=== PATIENT | female | born 1975 | race Caucasian/White ===

== ENCOUNTER 2018-03-24 12:02 | Inpatient (IN) | payer OTHER ==
[~2018-03-24] VITALS: Ht 157.5 cm; Wt 90.7 kg
[~2018-03-24 12:02] MED LIST: CIPRO750 MG PO; CLONAZEPAM1 MG PO; DEMEROL50 MG PO; DOCUSATE SODIU100 MG PO; METHYLPRED4 MG/DOSE- PO; NEURONTIN PO
[2018-03-31] MEDS ORDERED: SYNTHROID50 MCG PO (09:15)
[2018-03-31] MEDS ORDERED: PROTONIX40 MG PO (09:15)
[2018-03-31] MEDS ORDERED: ZANTAC300 MG PO (09:15)
[2018-03-31] MEDS ORDERED: ZOCOR40 MG PO (09:16)
[2018-03-31] MEDS ORDERED: ANAPROX PO (09:16)
[2018-03-31] MEDS ORDERED: VITAMIN D350000 UNIT PO (09:17)
[2018-03-31] MEDS ORDERED: B-121000 MC1 PO (09:17)
[2018-03-31] MEDS ORDERED: CLONAZEPAM1 MG PO (09:18)
[2018-04-05] MEDS ORDERED: GABAPENTIN800 MG PO (09:20)
[2018-04-05] MEDS ORDERED: DOCUSATE SODIU100 MG PO (09:20)
[2018-04-05] MEDS ORDERED: AMOX-CLAV 875-1 EACH PO (09:22)
[2018-04-05] MEDS ORDERED: DEMEROL 50 M50 MG/ML IJ (09:23)
[2018-04-05] MEDS ORDERED: CLONAZEPAM1 MG PO (09:23)
[2018-04-05] MEDS ORDERED: PHENERGAN50 MG/1 ML IJ (15:38)
== END 2018-04-05 16:00 | disposition home or self-care (01) | DRG 460 ==
LOC: O/R 04-04 04:40 → PED 04-04 04:40 → O/R 04-04 07:15 → PED 04-04 18:51
PROVIDERS: Orthopaedic Surgery Orthopaedic Surgery of the Spine
PROC: 0ST40ZZ Resection of Lumbosacral Disc, Open Approach (ICD-10-PCS; 2018-04-04)
PROC: 0SP40JZ Removal of Synthetic Substitute from Lumbosacral Disc, Open Approach (ICD-10-PCS; 2018-04-04)
PROC: 07DS3ZZ Extraction of Vertebral Bone Marrow, Percutaneous Approach (ICD-10-PCS; 2018-04-04)
PROC: 0SG30AJ Fusion of Lumbosacral Joint with Interbody Fusion Device, Posterior Approach, Anterior Column, Open Approach (ICD-10-PCS; principal; 2018-04-04 13:30)
DX: M96.0 Pseudarthrosis after fusion or arthrodesis (principal); M51.17 Intervertebral disc disorders with radiculopathy, lumbosacral region; E03.8 Other specified hypothyroidism; K29.60 Other gastritis without bleeding; R51 Headache

== ENCOUNTER 2025-06-13 11:43 | Inpatient (IN) | payer OTHER ==
[~2025-06-13] VITALS: Ht 157.5 cm; Wt 97.5 kg
[~2025-06-13 11:43] MED LIST changes: +AMOX-CLAV 875-1 EACH PO; +ANAPROX PO; +B-121000 MC1 PO; +DEMEROL 50 M50 MG/ML IJ; +GABAPENTIN800 MG PO; +PHENERGAN50 MG/1 ML IJ; +PROTONIX40 MG PO; +SYNTHROID50 MCG PO; +VITAMIN D350000 UNIT PO; +ZANTAC300 MG PO; +ZOCOR40 MG PO
[2025-06-13 13:25] LABS: COVID-19 AG NEGATIVE (NEGATIVE)
[2025-06-13 13:39] LABS: INR 1.09
[2025-06-13 14:19] VITALS: BP 117/88
[2025-06-20] MEDS ORDERED: METRONIDAZOLE/SODIUM CHLORIDE 500 MG/100 ML PIGGYBACK IV ONE (12:28)
[2025-06-20] MEDS ORDERED: CLINDAMYCIN PHOSPHATE 150 MG/ML (600mg) ONE ×2 (12:28→18:11)
[2025-06-20] MEDS ORDERED: DIPHENHYDRAMINE HCL 50 MG/ML VIAL 1ML ONE (14:23)
[2025-06-20] MEDS ORDERED: BUPIVACAINE HCL/MPF 0.5% 30ML VIAL ONE (16:25)
[2025-06-20] MEDS ORDERED: THROMBIN,HU/FIBRINOGEN/CALCIUM 10 ML SYRINGE TOP ONE (16:26)
[2025-06-20] MEDS ORDERED: VISTASEAL DUAL APPICATOR 1 EACH APPL TOP ONE (16:28)
[2025-06-20] MEDS ORDERED: RINGERS SOLUTION,LACTATED 1,000 ML IV SCH (16:30)
[2025-06-20] MEDS ORDERED: NALBUPHINE HCL 10 MG/ML AMPUL IV PRN (16:30)
[2025-06-20] MEDS ORDERED: SUGAMMADEX SODIUM 200 MG/2 ML VIAL IV ONE (16:48)
[2025-06-20] MEDS ORDERED: GABAPENTIN 300 MG CAPSULE PO SCH (17:00)
[2025-06-20] MEDS ORDERED: CLINDAMYCIN PHOSPHATE 150 MG/ML (600mg) IV SCH (17:00)
[2025-06-20] MEDS ORDERED: SIMETHICONE 125 MG CAPSULE PO SCH (17:00)
[2025-06-20] MEDS ORDERED: METOCLOPRAMIDE HCL 5 MG/ML VIAL IV SCH (17:00)
[2025-06-20] MEDS ORDERED: METOCLOPRAMIDE HCL 5 MG/ML VIAL ONE (18:03)
[2025-06-20 19:26] LABS: BUN CREA RATIO 8.0 (7.0-25.0); CREATININE SERUM 0.8 mg/dL (0.55-1.02); GFR 76.88; GLUCOSE FASTING 119.0 mg/dL (65-100); OSMOLALITY SERUM 280.0 MOSM/KG (275-295)
[2025-06-20] MEDS ORDERED: FAMOTIDINE/PF 20 MG/2 ML VIAL ONE (20:19)
[2025-06-20 20:20] LABS: BASO % 0.4 % (0.1-1.2); EOS # 0.03 (0.04-0.54); EOS % 0.3 % (0.7-7.0); LYMPH # 1.01 (1.18-3.74); LYMPH % 9.9 % (19.3-53.1); MEAN PLATELET VOLUME 10.50 fl (9.4-12.4); MONO # 0.47 (0.24-0.82); MONO % 4.6 % (4.7-12.5); NEUT # 8.59 (1.56-6.13); NEUT % 84.5 % (34.0-71.1); RED CELL DISTRIBUTION WIDTH 18.6 % (11.6-14.4)
[2025-06-20 21:00] VITALS: BP 115/73
[2025-06-20] MEDS ORDERED: DOCUSATE SODIUM 100MG CAP PO SCH (21:00)
[2025-06-20] MEDS ORDERED: FAMOTIDINE/PF 20 MG/2 ML VIAL IV PUSH SCH (21:00)
[2025-06-21 00:45] VITALS: BP 100/67; O2SAT 97
[2025-06-21] MEDS ORDERED: DIPHENHYDRAMINE HCL 50 MG/ML VIAL 1ML IV ONE (02:00)
[2025-06-21 02:34] LABS: BASO % 0.3 % (0.1-1.2); EOS # 0.00 (0.04-0.54); EOS % 0.0 % (0.7-7.0); LYMPH # 1.04 (1.18-3.74); LYMPH % 9.5 % (19.3-53.1); MEAN PLATELET VOLUME 9.60 fl (9.4-12.4); MONO # 0.41 (0.24-0.82); MONO % 3.7 % (4.7-12.5); NEUT # 9.47 (1.56-6.13); NEUT % 86.3 % (34.0-71.1); RED CELL DISTRIBUTION WIDTH 18.6 % (11.6-14.4)
[2025-06-21 02:55] LABS: BUN CREA RATIO 7.0 (7.0-25.0); CREATININE SERUM 0.88 mg/dL (0.55-1.02); GFR 68.88; GLUCOSE FASTING 123.0 mg/dL (65-100); OSMOLALITY SERUM 278.0 MOSM/KG (275-295)
[2025-06-21 04:30] VITALS: BP 94/60
[2025-06-21 08:00] VITALS: BP 103/68
[2025-06-21] MEDS ORDERED: DIPHENHYDRAMINE HCL 50 MG/ML VIAL 1ML IV NR (09:00)
[2025-06-21] MEDS ORDERED: ENOXAPARIN SODIUM 40 MG/0.4 ML SYRINGE SUBCUTANEO SCH (09:00)
== END 2025-06-21 13:40 | disposition home or self-care (01) | DRG 741 ==
LOC: O/R 06-20 11:00 → OB/GYN 06-20 12:00
PROVIDERS: Obstetrics & Gynecology; ADMIT Obstetrics & Gynecology Gynecologic Oncology; ATTEND Obstetrics & Gynecology Gynecologic Oncology
PROC: 0UT74ZZ Resection of Bilateral Fallopian Tubes, Percutaneous Endoscopic Approach (ICD-10-PCS; 2025-06-20)
PROC: 0UT24ZZ Resection of Bilateral Ovaries, Percutaneous Endoscopic Approach (ICD-10-PCS; 2025-06-20)
PROC: 07BC4ZZ Excision of Pelvis Lymphatic, Percutaneous Endoscopic Approach (ICD-10-PCS; 2025-06-20)
PROC: 8E0W4CZ Robotic Assisted Procedure of Trunk Region, Percutaneous Endoscopic Approach (ICD-10-PCS; 2025-06-20)
PROC: 0UT94ZZ Resection of Uterus, Percutaneous Endoscopic Approach (ICD-10-PCS; principal; 2025-06-20 16:00)
DX: C54.1 Malignant neoplasm of endometrium (principal); D36.0 Benign neoplasm of lymph nodes
CPT/HCPCS: 58548; S2900